=== PATIENT | female | born 1990 | race Caucasian/White ===

== ENCOUNTER 2016-12-17 00:03 | Emergency (ER) | payer OTHER ==
[~2016-12-17] VITALS: Ht 180.3 cm; Wt 131.8 kg
[2016-12-17 00:13] VITALS: BP 138/97; PULSE 112; RESP 22; O2SAT 100
[2016-12-17] MEDS ORDERED: 0.9% Sodium Chloride 1,000 ML IV ONE (00:25)
[2016-12-17] MEDS ORDERED: HYDROmorphone 1 mg/mL Inj IVPUSH PRN (00:25)
--- NOTE | 2016-12-17 00:25 | ED.REPORT ---
HPI-Abd Pain F Under 40 Date of Service December 17, 2016 ED Provider: Jim Leblanc DO Patient is a 26 year old female with a history of gallstones who presents to the ED complaining of upper quadrant abdominal pain onset 1999. Associated symptoms include pain that radiates down her back and bilateral flank pain, nausea, 3 episodes of vomiting and dizziness. She denies fever, diarrhea or . Patient states that her upper quadrant abdominal pain increases with deep inhalation. The patient reports that she had problems with gallstones after starting a new control and decided to not have her gallbladder removed because she stopped taking that control. She recently started taking a different form of control in July. Nursing Notes Stated Complaint: POSSIBLE GALLBLADDER ATTACK, ABDOMINAL PAIN Chief Complaint: Female Abdominal Pain Nursing Notes Reviewed: Yes Allergies: Uncoded Allergies: SULFA (Allergy, Mild, VOMIT, 12/17/16) General Time Seen by MD: 00:25 Chief Complaint Abdominal pain Hx Obtained From: Patient Arrived By: Walk-in Sudden in Onset?: Yes Onset Occurred: 5 - 8 hours ago Symptom Duration: Since onset Location: : LUQ: RUQ Radiation: : Back: Flank left: Flank right Associated with: Reports: Back pain, Nausea, Denies: Diarrhea, Fever Recent Healthcare: No recent doctor visit, No recent hospitalization Similar Sx Previous: Yes Past Medical History Past Medical History gallstones Smoking History Unknown if Ever Smoker Social History Other Social History: Local resident Ambulatory Status Independent Review of Systems Constitutional: Denies: Fever Respiratory: Denies: Non-productive cough, Shortness of breath GI: Reports: Abdominal pain, Nausea, Vomiting, Denies: Diarrhea Female: Reports: Flank pain, Denies: Musculoskeletal: Reports: Back pain Complete sys rev & neg: except as marked. Neurologic: Reports: Dizziness Physical Exam Initial Vital Signs Vital Signs (First) Date Time Temp Pulse Resp B/P Pulse Ox O2 Delivery O2 Flow Rate FiO2 12/17/16 00:13 36.2 112 22 138/97 100 Room Air Initial VS: Reviewed General/Constitutional: Awake, Alert Distress / Hydration: Positive: Distress moderate Respiratory / Chest: Atraumatic, Breath sounds NL, Breath sounds = bilat, No respiratory distress Cardiovascular: Heart rate NL, Regular rhythm, Heart sounds NL Abdomen: Atraumatic, Soft Tenderness/Guarding/Rebound: Positive: Tender RUQ... (Moderate) Back: Atraumatic, Full range of motion Head / Eyes: Atraumatic, Normocephalic, PERRL, EOMI Skin: Atraumatic, Color NL, No rash, Warm, Dry no jaundice Neurologic: Oriented X3, Speech NL, No motor deficits, No sensory deficits Lower Extremity / Pelvis / MS: Atraumatic, Full range of motion, No edema Psychiatric: Affect NL, Mood NL Interpretation & Diagnostics Interpretation & Diagnostics: GALLBLADDER ULTRASOUND: CONCLUSION: Cholelithiasis without signs of cholecystitis. CBD measures 4 mm on one image and 7mm on another image. No sonographic evidence of choledocholithiasis but the duct is not seen in its entirety. Correlate with laboratoy values. at 0229 Lab Results Interpretation Result Diagram: 12/17/16 0047 12/17/16 0047 Test 12/17/16 00:47 12/17/16 00:48 12/17/16 01:33 White Blood Count 6.9th/mm3 (3.8-10.1) Red Blood Count 4.83mil/mm3 (3.90-5.20) Hemoglobin 13.3g/dL (12.0-15.6) Hematocrit 38.2% (35.0-46.0) Mean Corpuscular Volume 79.1fL (81-100) Mean Corpuscular Hemoglobin 27.5pg (27.0-35.0) Mean Corpuscular Hemoglobin Concent 34.8% (32.0-37.0) Red Cell Distribution Width 13.1% (12.3-15.4) Platelet Count 268bil/L (150-400) Neutrophils (%) (Auto) 61.2% (40-74) Lymphocytes (%) (Auto) 24.5% (14-46) Monocytes (%) (Auto) 9.7% (4-12) Eosinophils (%) (Auto) 4.5% (0-5) Basophils (%) (Auto) 0.1% (0-3) Sodium Level 139mEq/L (134-144) Potassium Level 4.2mEq/L (3.5-5.2) Chloride Level 102mEq/L (97-108) Carbon Dioxide Level 25mmol/L (18-29) Blood Urea Nitrogen 12mg/dL (6-20) Creatinine 0.62mg/dL (0.57-1.00) Estimat Glomerular Filtration Rate 167mL/min (>59) Glucose Level 134mg/dL (60-99) Calcium Level 9.1mg/dL (8.5-10.1) Total Bilirubin 0.6mg/dL (0.0-1.2) Aspartate Amino Transf (AST/SGOT) 109U/L (0-50) Alanine Aminotransferase (ALT/SGPT) 88U/L (0-32) Alkaline Phosphatase 147U/L (25-150) Total Protein 7.9g/dL (6.4-8.4) Albumin 4.0g/dL (3.4-5.0) Lipase 23U/L (13-60) Hold Carranza Top Tube Received (Received) Urine Color Yellow (YELLOW) Urine Appearance Hazy (CLEAR,HAZY) Urine pH 7.5 (5.0-8.0) Urine Specific [place] 1.015 (1.003-1.035) Urine Protein Negativemg/dL (NEG,TRACE) Urine Glucose (UA) Negativemg/dL (NEGATIVE) Urine Ketones Negativemg/dL (NEGATIVE) Urine Occult Blood Moderate (NEGATIVE) Urine Nitrite Negative (NEGATIVE) Urine Bilirubin Negative (NEGATIVE) Urine Urobilinogen 1.0mg/dL (NORMAL) Urine Leukocyte Esterase Negative (NEGATIVE) Urine RBC 11-50/hpf (0-2) Urine WBC 6-10/hpf (0-5) Urine Epithelial Cells Moderate/hpf (NONE-MOD) Urine Crystals None seen (NONE SEEN) Urine Bacteria Moderate/hpf (NONE-FEW) Urine Hyaline Casts None/lpf (NONE) Urine Granular Casts None seen (NONE SEEN) Urine Waxy Casts None seen (NONE SEEN) Urine Red Blood Cell Casts None seen (NONE SEEN) Urine White Blood Cell Casts None seen (NONE SEEN) Urine Mucus None seen (None Seen) Urine Trichomonas None seen (NONE SEEN) Urine Yeast None (NONE SEEN) Urinalysis Comment None Urine Culture Reflexed Indicated Re-Eval/Medical Decision Re-Evaluation/Progress : Time of Eval: 02:43 Patient Status: Condition improved Re-Evaluation/Progress Note: Discussed ultrasound results and plan for discharge. The patient understands and agrees to the plan for discharge. All questions were addressed. Counseled Regarding: Diagnosis, Lab results, Need for follow-up, When/why to return to ED Discharge & Departure Primary Impression: Abdominal pain Abdominal location: upper abdomen, unspecified Qualified Code: R10.10 - Upper abdominal pain, unspecified Additional Impression: Gallstone Cholecystitis presence: without cholecystitis Biliary obstruction: without biliary obstruction Qualified Code: K80.20 - Calculus of gallbladder without cholecystitis without obstruction Disposition: Home Discharge Condition All VS Reviewed: Yes Condition: Stable Patient Instructions: Abdominal Pain (ED), Gallstones (ED) Additional Instructions: Your ultrasound shows evidence of gallstones. You should call Dr. Jim Ornelas tomorrow for a follow up appointment and to schedule surgery. Take Augmentin 2x daily for 5 days. You can take 1-2 Percocet every 6 hours for pain. Do not consume alcohol or drive while taking the Percocet. Do not take Acetaminophen while taking the pain medication. Return to the emergency department if you develop any new or worsening symptoms including jaundice or fever. Referrals: Ronnie Ornelas MD [facility] Scribe Attestation Portions of this note were transcribed by Bria Castro. I, Dr. Leblanc personally performed the history, physical exam and medical decision-making; I reviewed and confirmed the accuracy of the information in the transcribed note. Signed by: Judi Osborne, 12/17/16 and 0210 copies to: Ronnie Ornelas MD; [facility] Jim Leblanc DO December 17, 2016 00:25 Yajaira Castro December 17, 2016 02:07
[2016-12-17] MEDS: Ondansetron 2 mg/mL 2 mL Inj IVPUSH PRN ×2 (00:43→02:58)
[2016-12-17 00:50] LABS: BASOPHILS % (AUTO) 0.1 % (0-3); EOSINOPHILS % (AUTO) 4.5 % (0-5); MONOCYTES % (AUTO) 9.7 % (4-12); Mean Corpuscular Hemoglobin 27.5 pg (27.0-35.0); Mean Corpuscular Volume 79.1 fL (81-100); NEUTROPHILS % (AUTO) 61.2 % (40-74); Platelet Count 268 bil/L (150-400)
[2016-12-17 01:41] LABS: APPEARANCE,URINE HAZY (CLEAR,HAZY); COLOR,URINE YELLOW (YELLOW); OCCULT BLOOD,URINE MODERATE (NEGATIVE); PH,URINE 7.5 (5.0-8.0)
[2016-12-17] MEDS ORDERED: Amoxicillin-Clav 875-125 mg Tablet PO ONE (02:40)
[2016-12-17 02:58] VITALS: BP 130/88; PULSE 100; RESP 18; O2SAT 99
--- NOTE | 2016-12-17 09:13 | DRSVH ---
PROCEDURE: US ABDOMEN, LIMITED ([id number]) INDICATIONS: right upper quadrant pain, elevated transaminases TECHNIQUE: Real-time focused scanning was performed of the abdomen, with image documentation. COMPARISON: None. FINDINGS: Multiple gallstones within the gallbladder lumen. No biliary distention or evidence of acu te cholecystitis. IMPRESSION: Multiple small to moderate-sized posterior layering gallstones within the gallbladder lum en. Currently no acute cholecystitis or biliary obstruction is suspected. Dictated by: Vinayak Hodge M.D. on 12/17/2016 at 9:11 Approved by: Vinayak Hodge M.D. on 12/17/2016 at 9:12
[2016-12-31] MEDS ORDERED: ESTR-28 PO (13:22)
[2016-12-31] MEDS ORDERED: METF500T4 PO (13:22)
[2016-12-31] MEDS ORDERED: ONDA4TAB6 PO (13:22)
[2016-12-31] MEDS ORDERED: SPIR100T3 PO (13:22)
[2016-12-31] MEDS ORDERED: OXYC1TAB24 PO (13:22)
== END 2016-12-17 03:03 | disposition home or self-care (01) ==
LOC: SED 00:03
DX: K80.20 Calculus of gallbladder without cholecystitis without obstruction (principal); Z88.2 Allergy status to sulfonamides
CPT/HCPCS: 36415; 76705; 80053; 81000; 81025; 83690; 85025; 87086; 87088; 96361; 96374; 96375; 96376; 99285; J1170; J1885; J2405; J7030

== ENCOUNTER 2017-01-01 06:58 | Day surgery (SDC) | payer OTHER ==
[~2017-01-01] VITALS: Ht 180.3 cm; Wt 134.2 kg
[2017-01-01] VITALS (10 sets, daily range): BP systolic 116–146; BP diastolic 65–90; PULSE 69–94; RESP 14–20; O2SAT 93–99
[~2017-01-01 06:58] MED LIST: ESTR-28 PO; METF500T4 PO; ONDA4TAB6 PO; OXYC1TAB24 PO; SPIR100T3 PO
[2017-01-01] MEDS ORDERED: Dexamethasone 4 mg/mL Inj ONE (06:59)
[2017-01-01] MEDS ORDERED: Ondansetron 2 mg/mL 2 mL Inj ONE (06:59)
[2017-01-01] MEDS ORDERED: Glycopyrrolate 0.2 MG/ML 1mL Inj ONE (06:59)
[2017-01-01] MEDS ORDERED: Ketamine 10 mg/mL 20 mL Inj ONE (06:59)
[2017-01-01] MEDS ORDERED: Propofol 10,000 mCg/mL 20 mL Inj ONE (06:59)
[2017-01-01] MEDS ORDERED: fentaNYL-PF 50 mCg/mL 2 mL Inj ONE (06:59)
[2017-01-01] MEDS ORDERED: Rocuronium 10 mg/mL 5 mL Inj ONE (06:59)
[2017-01-01] MEDS: Lactated Ringer's 1,000 ML IV SCH ×2 (07:46→08:36)
--- NOTE | 2017-01-01 07:53 | PCM.HPANE ---
Patient Data Surgeon Admitting Provider: Attending Provider:Chuck Krueger MD Primary Care Physician:Meli Velarde Other Provider:Laura Sheth Anesthesia Reason for Visit Biliary Colic Ht/WT & BMI Height (Feet): 5 Height (Inches): 11.00 Weight (Kilograms): 134.2 Body Mass Index 41.00 Allergies Uncoded Allergies: SULFA (Adverse Reaction, Severe, FEVER, N&V, 12/31/16) Past Anesthesia History Anesthesia History: Denies:: Abnormal Airway, Anesthesia Reactions, Difficult Intubation, Malignant Hyperthermia Diabetes History Hx Diabetes?: Yes Type of Diabetes: Type II MRSA MRSA: No Medications Hypertension Medication: No Home Meds Incl Beta Nathan: No Reported Medications Spironolactone 100 Mg [id number] Mg PO BID #30 TABLET Ref 0 12/31/16 oxyCODONE-Acetaminophen 5-325 mg 1 Each Tablet1 Tab PO Q6H PRN For Pain Ref 0 12/31/16 Ondansetron (Zofran)4 Mg Tablet4 Mg PO Q8H PRN For Nausea 12/31/16 Metformin 500 Mg [id number] Mg PO BID Ref 0 12/31/16 Drospirenone/Estradiol 0.25-0.5 mg (Angeliq 0.25-0.5 mg)1 Each Tablet1 Tablet PO DAILY #1 PACK 12/31/16 History History of ENT Problems?: Yes HEENT History: Denies:: Abnormal Airway Difficult Intubation Denture Type: None Teeth Condition: Within Normal Limits Other HEENT Pertinent History: S/P WISDOM TEETH EXTRACTIONS Hx of Heart Problems?: No Cardiovascular History: Denies:: Congestive Heart Failure Hypertension Irregular Heartbeat Hx of Respiratory Problem?: No Respiratory History: Denies:: Tuberculosis Use of C-PAP Machine Hx Neurologic Problems?: No Hx of GI Problems?: Yes Hx of Problems?: No Female Hx: Denies:: Currently (HX PCOS-ON METFORMIN) Skin History: Denies:: History Skin Disorders? Pressure Ulcers Hx Musculoskeletal Problems?: No Hx of Psycho/Social Problems?: No Hx Surgeries?: Yes (WISDOM TEETH) Hx Any Other Health Problems?: Yes Other History: Denies:: Cancer Endocrine Disease Hospitalization Thyroid Disease History Blood Transfusions: Denies:: Blood Transfusions Hx Diabetes: Yes Hx Alcohol Use: NoHx Substance Use: No Smoking Status: Unknown if Ever Smoker Have You Smoked inLast 12 mo: No Stop/Bang Treated for Sleep Apnea?: No Do You Have a CPAP Machine?: No S-Snoring: Do You Snore Loudly: No T-Tired: feel tired, fatigued: No O-Obsered: Observed not breath: No P-Blood Pressure: treated: No B- Body Mass Index > 35 kg/m2: Yes A- Age over 50: No N- Neck Large Circumference: Yes G- Gender Male: No OFELIA Total Score: 2 OFELIA Risk Assessment: Low Risk, <3 Yes OFELIA Category 4 OutPt Procedure: Yes Risk Assessment Category Category 1A: Patient has history of documented sleep apnea, and HAS NOT received any narcotic, sedative or anesthesia administration during this stay. Category 1B: Patient has history of documented sleep apnea, and HAS received any narcotic , sedative or anesthesia administration during this stay Category 2: Patient has SUSPECTED Obstructive Sleep Apnea, and HAS received any narcotic , sedative or anesthesia administration during this stay. Category 3: Patient has SUSPECTED Obstructive Sleep Apnea and HAS NOT received narcotic, sedative or anesthesia administration during this stay. Category 4: Outpatient in Procedural Areas with known sleep apnea or who screen positive for High Risk via the STOP/BANG questionnaire. Exam Exam Vital Signs Vital Signs Date Time Temp Pulse Resp B/P Pulse Ox O2 Delivery O2 Flow Rate FiO2 01/01/17 07:41 36.2 89 14 116/65 95 Room Air General Appearance: Alert, Oriented X3, Cooperative, No Acute Distress HEENT/AIRWAY: MP 2 Lungs: Clear to Auscultation, Normal Air Movement Heart: Exam Unremarkable, Regular Rate/Rhythm, No Murmurs/Rubs/Gallops Meds/Labs/Diagnostics Admission Meds Current Medications Lactated Ringer's (Lr) 1,000 ml @ 120 mls/hr Q8H20M IV Last administered on t 07:46; Start 01/01/17 at 05:00; Stop 01/01/17 at 13:19 Plan Impression Patient chart reviewed, patient interviewed and anesthestic plan with risks, benefits, and alternatives discussed, and informed consent obtained. ASA Physical Status: ASA3 Severe Disease (BMI 41) Anesthetic Plan: GA Bene/Risks/Altern/Consents: Yes HP Complete Prior to Induction: Yes Brown Peña MD Jan 01, 2017 07:53
[2017-01-01] MEDS ORDERED: Lactated Ringer's 1,000 ML IV SCH (08:32)
[2017-01-01] MEDS ORDERED: Lactated Ringer's 500 ML IV PRN (08:32)
[2017-01-01] MEDS ORDERED: EPHEDrine Sulfate 50 mg/mL Inj IVPUSH PRN (08:35)
[2017-01-01] MEDS ORDERED: Dexamethasone 4 mg/mL Inj IVPUSH PRN (08:35)
[2017-01-01] MEDS ORDERED: Ondansetron 2 mg/mL 2 mL Inj IVPUSH PRN (08:35)
[2017-01-01] MEDS ORDERED: MetoCLOpramide 5 mg/mL 2 mL Inj IVPUSH PRN (08:35)
[2017-01-01] MEDS ORDERED: Phenylephrine 10,000 mCg/mL Inj IVPUSH PRN (08:35)
[2017-01-01] MEDS ORDERED: Bupivacaine-MPF 0.25% 30 mL Inj INFILTRATE ONE (09:01)
[2017-01-01] MEDS ORDERED: oxyCODONE-Acetamin 5-325 mg Tablet PO PRN (10:00)
--- NOTE | 2017-01-01 10:11 | OP ---
[address] [address] OPERATIVE REPORT PATIENT: NESS LUU : 1990 MR#: [id number] ADMIT: 01/01/2017 JOB ID: [id number] DATE OF SURGERY: 01/01/2017 ANESTHESIA: General. PREOPERATIVE DIAGNOSIS(ES): Symptomatic cholelithiasis. POSTOPERATIVE DIAGNOSIS(ES): Symptomatic cholelithiasis. PROCEDURE: Laparoscopic cholecystectomy (22 modifier billed due to increased complexity of the case given the patient's irregular anatomy requiring increased time utilization). SURGEON: Chuck Krueger MD. LITIGATION SERVICES MANAGER: Hawk Voss PA-C (the certified surgical tech/first assistant was required for the safe and timely completion of the case). COMPLICATIONS: None. ESTIMATED BLOOD LOSS: Less than 20 mL. CONDITION: Satisfactory. SPECIMEN: Gallbladder. FINDINGS: The gallbladder was in an irregular location. It was below the falciform ligament in the midline. This resulted in a difficult dissection. INDICATION/SIGNIFICANT HISTORY: The patient is a 26-year-old woman who is been struggling with postprandial right upper quadrant abdominal pain. She went to the emergency department and was diagnosed with biliary colic and was referred to me. OPERATIVE TECHNIQUE: The patient was taken to the operating room and placed in a supine position. General anesthesia was administered. The abdomen was prepped and draped in standard surgical fashion. A procedure pause was performed. Entry was gained to the abdomen through a supraumbilical incision using a 10 mm Optiview trocar. Pneumoperitoneum was achieved without complication. Local anesthetic was injected, followed by insertion of 5 mm ports in the subxiphoid as well as two in the right upper quadrant. The gallbladder was in an unusual location in the midline, below the falciform ligament. I had to take the umbilical ligament. I clipped this on both sides and then took it with electrocautery. I then opened up the falciform off the liver, over the liver surface. The gallbladder was then grasped and had to be retracted actually medially to allow dissection to begin. There were some adhesions which were taken down. Eventually, I then retracted the gallbladder laterally and then started taking the gallbladder off the cystic plate on patient's left side. This allowed the gallbladder to come out a little bit more. There was some bleeding encountered in the cystic plate and two clips were placed just below the umbilical ligament. Eventually, I was able to achieve a critical view of safety. A single clip was then placed on the cystic artery. The duct was well pediclized with the base of the gallbladder off the cystic plate. Three clips were placed on the duct and duct was taken sharply. Very little remained of the gallbladder and cystic plate which was taken and the gallbladder was then placed in an EndoCatch bag. The surgical bed was copiously irrigated and found to be completely hemostatic. The gallbladder was removed through the umbilical port site. and the fascia there was closed with 0 PDS suture with a laparoscopic suture passer. The lateral ports were then removed under direct visualization, followed by release of pneumoperitoneum and removal of remaining port. Skin was closed using 4-0 Monocryl. The entire procedure was well tolerated without complication. MARIANA
--- NOTE | 2017-01-01 10:15 | PCM.ANEP1 ---
Post Anesthesia PACU Phase 1 Assessment Vital Signs Vital Signs Date Time Temp Pulse Resp B/P Pulse Ox O2 Delivery O2 Flow Rate FiO2 01/01/17 10:10 79 17 133/75 99 Room Air 01/01/17 10:05 36.6 84 16 138/82 98 Room Air 01/01/17 10:00 94 18 136/84 96 Room Air 01/01/17 08:56 36.4 94 20 146/84 95 Room Air 01/01/17 07:41 36.2 89 14 116/65 95 Room Air Anesthetic Administered: GA Level of Alertness: Sleepy, easy to arouse CLEARY's with Equal Strength: Yes Pain: No Nausea or Vomiting: No CV Function & Hydration Stable: Yes Airway Device: Oralpharangeal Airway Oxygen Delivery: Simple Mask Lungs: Clear to Auscultation, Normal Air Movement Dermatome Level: Full Sensation PACU Phase 2 Assessment Complications: No Follow up Care: N/A Patient Instructions Provided: Yes Brown Peña MD Jan 01, 2017 10:15
[2017-01-01] MEDS: fentaNYL-PF 50 mCg/mL 2 mL Inj IVPUSH PRN ×2 (10:34→10:40)
[2017-01-01] MEDS ORDERED: Lactated Ringer's 1,000 ML IV ONE (10:54)
[2017-01-01] MEDS: HYDROmorphone 1 mg/mL Inj IVPUSH PRN ×2 (11:00→12:10)
--- NOTE | 2017-01-02 14:08 | PATH ---
SURGICAL PATHOLOGY Attending Physician:Chuck Krueger MD CASE STATUS: Signed Out PATIENT NAME: NESS LUU PID: [id number] : 1990 DATE COLLECTED:01/01/2017 15:24 SPECIMEN: Gallbladder CLINICAL HISTORY: GALLSTONES 1. GALLBLADDER FINAL DIAGNOSIS: 1.GALLBLADDER: CHOLELITHIASIS WITH ASSOCIATED CHRONIC CHOLECYSTITIS AND CHOLESTEROLOSIS. ICD10 K80.66 GROSS DESCRIPTION: The specimen is received in one formalin filled container labeled with the patient's name, sublabeled "gallbladder" and consists of an intact 8.0 x 3.0 x 3.0 CM gallbladder. The serosa is smooth. The cystic duct is possibly identified. The wall is 0.2-0.3 CM in thickness. The mucosa is a green oliva in color. The lumen contains a dark green mucoid material and approximately 10-15 yellow-green multifaceted calculi which range in size from 0.5-1.2 CM in greatest dimension. 5 software sales representative sections are submitted in one cassette. 01/01/2017 DAC MICRO DESCRIPTION: See diagnosis. ICD-9 CODES: CPT CODES: 1: 07742 Electronically Signed Out Alfonso Guaman MD [facility] [address], [place] [address] Technical component performed at [facility], [facility] [address], [place], [address]
== END 2017-01-01 23:59 | disposition home or self-care (01) ==
LOC: SAS 06:58
PROVIDERS: ATTEND General Practice
DX: K80.10 Calculus of gallbladder with chronic cholecystitis without obstruction (principal); E11.9 Type 2 diabetes mellitus without complications; E28.2 Polycystic ovarian syndrome; E66.01 Morbid (severe) obesity due to excess calories; Z68.41 Body mass index [BMI] 40.0-44.9, adult; Z79.84 Long term (current) use of oral hypoglycemic drugs
CPT/HCPCS: 47562; J1100; J1170; J1885; J2405; J3010; J7120